=== PATIENT | female | born 1965 | race Caucasian/White ===

== ENCOUNTER → 2016-08-17 | Outpatient (CLI) | payer BC ==
[~2016-08-17] MED LIST: CLC100 PO; FLX10 PO; PRCUNK PO
[2016-08-17 14:20] LABS: BASO % 0.3 %; BASO ABS # 0.02 K/uL (0-0.2); COMPLETE YES; EOS % 3.1 %; HEMATOCRIT 38.7 % (37-47); IG% 0.1 %; LYMPH % 36.7 %; LYMPH ABS # 2.68 K/uL (1.2-3.4); MEAN CELL VOLUME 89.4 fL (80-100); MEAN CORPUSCULAR HEMOGLOBIN 31.6 pg (25-34); MEAN CORPUSCULAR HGB CONC 35.4 g/dl (32-36); MEAN PLATELET VOLUME 10.6 fL (7.4-10.4); MONO % 4.2 %; NEUT % 55.6 %; PLATELET COUNT 203 K/uL (130-400); RED BLOOD COUNT 4.33 M/uL (4.2-5.4); WHITE BLOOD COUNT 7.31 K/uL (4.8-10.8)
[2016-08-17 14:30] LABS: ALT/SGPT 23 U/L (12-78); AST/SGOT 12 U/L (15-37); BLOOD UREA NITROGEN 13 mg/dl (7-18); CALCIUM 8.8 mg/dl (8.5-10.1); CARBON DIOXIDE 25 mmol/L (21-32); CHLORIDE 109 mmol/L (98-107); CREATININE 0.76 mg/dl (0.60-1.20); GLUCOSE 85 mg/dl (70-99); POTASSIUM 3.7 mmol/L (3.5-5.1); SODIUM 142 mmol/L (136-145)
[2016-08-17 14:41] LABS: ALB/GLOB RATIO 1.4 (0.9-2); ALKALINE PHOSPHATASE 61 U/L (45-117); AMYLASE 73 U/L (25-115)
== END | disposition home or self-care (01) ==
LOC: C.LABSPEC 13:41
PROVIDERS: ATTEND Family Medicine
DX: R10.84 Generalized abdominal pain (principal); R63.5 Abnormal weight gain

== ENCOUNTER → 2016-09-19 | Outpatient (CLI) | payer BC ==
[2016-09-19 13:16] LABS: BASO % 0.3 %; BASO ABS # 0.02 K/uL (0-0.2); COMPLETE YES; EOS % 2.2 %; HEMATOCRIT 41.8 % (37-47); IG% 0.1 %; LYMPH % 29.9 %; LYMPH ABS # 2.16 K/uL (1.2-3.4); MEAN CELL VOLUME 91.3 fL (80-100); MEAN CORPUSCULAR HEMOGLOBIN 31.2 pg (25-34); MEAN CORPUSCULAR HGB CONC 34.2 g/dl (32-36); MEAN PLATELET VOLUME 9.8 fL (7.4-10.4); MONO % 2.8 %; NEUT % 64.7 %; PLATELET COUNT 235 K/uL (130-400); RED BLOOD COUNT 4.58 M/uL (4.2-5.4); WHITE BLOOD COUNT 7.22 K/uL (4.8-10.8)
[2016-09-19 13:34] LABS: ESTIMATED AVERAGE GLUCOSE 88 mg/dl; HA1C FLAG Normal (Normal)
[2016-09-19 13:37] LABS: ALB/GLOB RATIO 1.4 (0.9-2); ALKALINE PHOSPHATASE 60 U/L (45-117); ALT/SGPT 23 U/L (12-78); AST/SGOT 12 U/L (15-37); BLOOD UREA NITROGEN 10 mg/dl (7-18); BUN/CREATININE RATIO 11.6 (10-20); CARBON DIOXIDE 24 mmol/L (21-32); CHLORIDE 108 mmol/L (98-107); CREATININE 0.85 mg/dl (0.60-1.20); GLUCOSE 92 mg/dl (70-99); POTASSIUM 3.8 mmol/L (3.5-5.1); SODIUM 140 mmol/L (136-145)
[2016-09-19 13:38] LABS: CALCIUM 9.4 mg/dl (8.5-10.1)
== END | disposition home or self-care (01) ==
LOC: C.LABSPEC 09-16 13:21
PROVIDERS: ATTEND Family Medicine
DX: R55 Syncope and collapse (principal)

== ENCOUNTER → 2017-09-12 | Outpatient (CLI) | payer BC | END | disposition home or self-care (01) | LOC: C.LABSPEC 17:45 | PROVIDERS: ATTEND Family Medicine | DX: R30.0 Dysuria (principal) ==

== ENCOUNTER 2018-01-11 09:47 | Day surgery (SDC) | payer BC ==
[2017-12-28 09:53] VITALS: BMI 25.0
[2018-01-04 14:34] VITALS: BMI 24.0
--- NOTE | 2018-01-04 15:03 | PAT Medication Instructions ---
Service Date Jan 04, 2018. Current Home Medication List Dix Carbonate (Dix Carbonate), 300 MG PO HS Medication Instructions For Your Scheduled Surgery - Take the following medications as scheduled the night before surgery: Dix Carbonate (Dix Carbonate), 300 MG PO HS If you have any questions please call us at [phone] or [phone] or [phone]
[2018-01-04 16:44] LABS: BASO % 0.6 %; BASO ABS # 0.04 K/uL (0-0.2); EOS % 5.3 %; EOS ABS # 0.38 K/uL (0-0.5); HEMATOCRIT 42.9 % (37-47); IG# 0.01 K/uL (0.00-0.02); LYMPH % 46.1 %; LYMPH ABS # 3.33 K/uL (1.2-3.4); MEAN CELL VOLUME 89.7 fL (80-100); MEAN CORPUSCULAR HEMOGLOBIN 31.4 pg (25-34); MEAN PLATELET VOLUME 10.8 fL (7.4-10.4); MONO % 4.8 %; MONO ABS # 0.35 K/uL (0.11-0.59); NEUT % 43.1 %; NEUT ABS # 3.11 K/uL (1.4-6.5); PLATELET COUNT 168 K/uL (130-400); RED CELL DISTRIBUTION WIDTH SD 42.6 fL (36.4-46.3); WHITE BLOOD COUNT 7.22 K/uL (4.8-10.8)
[2018-01-04 16:52] LABS: CALCIUM 9.4 mg/dl (8.5-10.1); CREATININE 0.9 mg/dl (0.60-1.20); POTASSIUM 4.3 mmol/L (3.5-5.1)
[~2018-01-11] VITALS: Ht 160 cm; Wt 63.9 kg
[~2018-01-11 09:47] MED LIST changes: +ATROPINE SULFATE 0.1 MG/ML 5ML SYR IV PRN; -CLC100 PO; +DEXAMETHASONE SOD INJ 4 MG/ML VIAL ONE; +EpHEDrine SULFATE INJ 50 MG/ML AMP IV PRN; +FENTANYL CITRATE INJ 50 MCG/1 ML 2 ML VIAL ONE; -FLX10 PO; +GLYCOPYRROLATE INJ 0.2 MG/ML VIAL ONE; +HYDROmorphone INJ 1 MG/ML SYR IV PRN; +LACTATED RINGER'S 1000ML 1,000 ML IV SCH; +LIDOCAINE HCL 2% 2 ML VIAL (20MG/ML) ONE; +LTHSR/300 PO; +MIDAZOLAM HCL 1 MG/ML 2ML VIAL ONE; +NEOSTIGMINE METHYLSULFATE 5 MG/5 ML SYR ONE; +ONDANSETRON INJ 2 MG/ML 2 ML VIAL IV PRN; +ONDANSETRON INJ 2 MG/ML 2 ML VIAL ONE; +PHENYLEPHRINE 100MCG/ML 5ML SYR IV PRN; -PRCUNK PO; +PROPOFOL IV EMULSION 10 MG/ML 20 ML VIAL ONE; +ROCURONIUM BROMIDE 10 MG/ML 5 ML VIAL ONE
[2018-01-11 10:19] VITALS: BP 110/64; PULSE 64; TEMP 36.4; O2SAT 100; Ht 160 cm; Wt 63.9 kg
[2018-01-11] MEDS ORDERED: BUPIVACAINE 0.5 % 5 MG/1 ML PF 10ML VIAL ONE ×2 (12:04→13:01)
--- NOTE | 2018-01-11 12:12 | History & Physical Bridge Note ---
H&P Re-Evaluation Bridge Note: I have examined the patient, reviewed the History & Physical and in the interval since the performance of the History & Physical I have noted the following changes of clinical significance: No changes noted
[2018-01-11] MEDS ORDERED: PHENYLEPHRINE 100MCG/ML 5ML SYR ONE (13:08)
[2018-01-11] MEDS ORDERED: TISSEEL FIBRIN SEALANT 10ML TOP ONE (13:34)
[2018-01-11] MEDS ORDERED: SODIUM CHLORIDE 0.9% 1000ML 1,000 ML IV SCH (13:56)
--- NOTE | 2018-01-11 13:59 | [facility] Post Operative Brief Note ---
Immediate Operative Summary Operative Date Jan 11, 2018. Pre-Operative Diagnosis Right complex ovarian cyst Post-Operative Diagnosis Same Procedure(s) Performed Robotic Assisted Bilateral Salpingo-Oophorectomy Surgeon Dr Valentin Civil Transportation Engineer Surgeon(s) Dr De Anda Estimated Blood Loss 5ML Findings Consistent with Post-Op Diagnosis Fluids (cc crystalloids) 1400 Specimens A. Bilateral fallopian tubes and ovaries Drains None Anesthesia Type General Complication(s) none Disposition Disposition: Recovery Room / PACU
[2018-01-11] MEDS ORDERED: OXYCODONE/ACETAMINOPHEN 5-325 TAB PO PRN ×2 (14:00)
[2018-01-11] MEDS ORDERED: ONDANSETRON INJ 2 MG/ML 2 ML VIAL IV PRN (14:00)
[2018-01-11] MEDS ORDERED: PROMETHAZINE HCL INJ 25 MG in SODIUM CHLORIDE 0.9% 50ML 50 ML IV PRN (14:00)
[2018-01-11] MEDS ORDERED: IBUPROFEN 600 MG TAB PO PRN (14:00)
[2018-01-11] MEDS ORDERED: KETOROLAC TROMETHAMINE 30 MG/ML VIAL IV. PRN (14:00)
[2018-01-11] MEDS ORDERED: OXYC-57 PO (14:24)
[2018-01-11] MEDS ORDERED: MTR600X PO (14:24)
--- NOTE | 2018-01-11 14:29 | Discharge Instructions ---
Discharge Instructions Date of Service Jan 11, 2018. Admission Reason for Admission: Pelvic Pain, Right Complex Ovarian Cyst Discharge Discharge Diagnosis / Problem: Post-op Discharge Goals Goal(s): Routine recovery after surgery Activity Recommendations Activity Limitations: as noted below ACTIVITY RECOMMENDATIONS: * May shower as usual. * No strenuous activity for 7-14 days. After14 days, you can increase activity as long as you are comfortable and not experiencing pain. RETURN TO SCHOOL/WORK: * You may return to school when specified by your physician. DIET: * Resume previous diet. MEDICATIONS: Resume previous medications unless instructed otherwise by your surgeon. Ibuprofen 200mg 2-3 tablets every 4-6 hours as needed --OR-- Aleve 2 tablets every 8-12 hours as needed for post-operative discomfort Medications are over the counter. Tylenol may be used if above medications are contraindicated or not preferred. Medication should be taken with food or milk. do not take on an empty stomach. SPECIAL CARE INSTRUCTIONS: * Check temperature twice daily for one week. Report any elevation over 101 degrees. * Call office if you experience increased pelvic pain or discomfort not relieved by pain medicine, if you have foul smelling vaginal discharge, or if you have bleeding. FOLLOW UP VISIT: Call your doctor's office for a post-operative visit. . Current Hospital Diet Patient's current hospital diet: Discharge Diet Recommended Diet: Regular Diet Procedures Procedures Performed: Robotic Assisted Bilateral Salpingo-Oophorectomy Pending Studies Studies pending at discharge: no Medical Emergencies . Who to Call and When: Medical Emergencies: If at any time you feel your situation is an emergency, please call 911 immediately. . Non-Emergent Contact Non-Emergency issues call your: Dance Instructor Contact Number: [phone] . . "Provider Documentation" section prepared by Maura Villa. .
--- NOTE | 2018-01-11 14:49 | Anesthesiology Progress Note ---
Anesthesia Post Op Note Date & Time Jan 11, 2018 at 14:48 Vital Signs Pain Intensity: 4 Vital Signs Past 12 Hours Date Time Temp Pulse Resp B/P (MAP) Pulse Ox O2 Delivery O2 Flow Rate FiO2 01/11/18 14:40 53 15 117/69 100 Oxymask 10 01/11/18 14:30 51 16 115/67 100 Oxymask 10 01/11/18 14:20 36.2 66 20 115/71 100 Oxymask 10 01/11/18 10:19 36.4 64 20 110/64 (79) 100 Room Air Notes Mental Status: alert / awake / arousable, participated in evaluation Pt Amnestic to Procedure: Yes Nausea / Vomiting: adequately controlled Pain: adequately controlled Airway Patency, RR, SpO2: stable & adequate BP & HR: stable & adequate Hydration State: stable & adequate Anesthetic Complications: no major complications apparent
--- NOTE | 2018-01-11 15:01 | [facility] Operative Report ---
Operative Report Operative Date Jan 11, 2018. Pre-Operative Diagnosis Right complex ovarian cyst Post-Operative Diagnosis Same Procedure(s) Performed Robotic Assisted Bilateral Salpingo-Oophorectomy Surgeon Dr Valentin Nursing Home Manager Surgeon(s) Dr De Anda Estimated Blood Loss 5ML Fluids 1400 Specimens A. Bilateral fallopian tubes and ovaries Drains None Anesthesia Type General Complication(s) none Disposition Recovery Room / PACU Indications 52 yo with a right adnexal mass desiring surgical management via laparoscopic bilateral salpingo-oophorectomy. Description of Procedure The patient was taken to the operating room and administered a general anesthetic. The patient was then placed in the dorsal lithotomy position and sterilely prepped and draped in the usual manner. A Breaux catheter was placed in the bladder. A sponge stick was placed in the vaginal canal. Attention was then turned to the abdomen. An umbilical incision was made with the scalpel. A 12 mm trocar, sleeve, and laparoscope was then placed in abdominal cavity without difficulty. The pelvic viscera were examined, carbon dioxide was infused until pneumoperitoneum was obtained. The uterus is surgically absent. The left ovary and fallopian tube was within normal limits. The right ovary and fallopian tube appeared to be normal, but was adherent to the right pelvic sidewall. Local anesthesia was then instilled at the sites of all the ports prior to placing the Surgiports. Two 8 mm Surgiports were then placed just inferior to the umbilicus and lateral to the rectus abdominis muscle bilaterally. A third 8 mm surgiport was placed in the left upper quadrant lateral to the umbilicus. These ports were put into the abdominal cavity under direct visualization. The assistant professor of radiology's port was then placed just beneath the ribs in the right upper quadrant of the abdomen. The da Hilda robot was then backed with the Surgiports. In the left arm was placed a plasma kinetic device and the right with the hot scissors. The left infundibulopelvic ligament was then isolated, cauterized in 3 contiguous areas with the PK. The infundibulopelvic ligament was then cut. The left adnexa was then from pelvic side wall using PK and the hot scissors. Lysis of adhesions was then performed with the hot scissors allowing the release of the right fallopian tube and ovary for the right pelvic sidewall. The right infundibulopelvic ligament was then isolated, cauterized in 3 contiguous areas with the PK. The infundibulopelvic ligament was then cut. The right adnexa was then from pelvic side wall using PK and the hot scissors. Both adnexa was then placed in an endocatch bag and removed from the pelvic cavity without difficulty. Hemostasis was noted. Tissel was then applied to the adnexal regions. Hemostasis was once again noted. The 12 mm assistant professor of radiology and umbilical Surgiport was removed and the fascia was closed with 0 Vicryl on a Rocky Bk. All the Surgiports were then removed under direct visualization. All incisions were then closed with 4-0 monocryl in a subcuticular fashion and dermabond. All sponge, needle and instrument counts were found to be correct. The Breaux catheter and sponge stick was removed. The patient tolerated the procedure well and was sent to the recovery room in stable condition. I attest to the content of the Intraoperative Record and any orders documented therein. Any exceptions are noted below.
[2018-01-11 15:04] VITALS: BP 92/63; PULSE 54; TEMP 36.6; O2SAT 100
[2018-01-11 15:30] VITALS: BP 103/63; PULSE 52; O2SAT 100
== END 2018-01-11 15:55 | disposition home or self-care (01) ==
LOC: C.ACU 09:47
PROVIDERS: ATTEND Obstetrics & Gynecology Obstetrics
DX: N83.201 Unspecified ovarian cyst, right side (principal); F17.200 Nicotine dependence, unspecified, uncomplicated; Z79.899 Other long term (current) drug therapy; F31.9 Bipolar disorder, unspecified
CPT/HCPCS: 58661; S2900